=== PATIENT | female | born 1950 | race Caucasian/White ===

== ENCOUNTER 2019-08-02 21:33 | Emergency (ER) | payer MEDICARE ==
[~2019-08-02] VITALS: Ht 160 cm; Wt 90.0 kg
[2019-08-02 21:35] VITALS: Ht 160 cm; Wt 90.0 kg
[2019-08-02] MEDS ORDERED: OMEPRAZOLE20 M1 PO (21:46)
[2019-08-02] MEDS ORDERED: CENTRUM SILVER1 EAC3 PO (21:46)
[2019-08-02] MEDS ORDERED: VOLTAREN25 MG PO (21:46)
[2019-08-02] MEDS ORDERED: HYDROCODON-ACE1 EAC7 PO (22:38)
[2019-08-02] MEDS ORDERED: CYCLOBENZAPRINE10 MG PO (22:38)
[2019-08-03 00:20] VITALS: BP 172/86
== END 2019-08-03 00:20 | disposition home or self-care (01) ==
LOC: D.ER 21:33
DX: S20.219A Contusion of unspecified front wall of thorax, initial encounter (principal); V49.59XA Passenger injured in collision with other motor vehicles in traffic accident, initial encounter